=== PATIENT | male | born 1965 | race Caucasian/White ===

== ENCOUNTER → 2017-01-15 | Outpatient (CLI) | payer OTHER ==
[~2017-01-15] MED LIST: ASP81TEC PO; BUPR150T9 PO; CYCL10TA9 PO; FURO20TA4 PO; LOVA40TA2 PO; MTP50T PO; NF-ACI30T PO; TIOT18CA2 IH
--- NOTE | 2017-01-15 12:09 | Diagnostic Imaging Report ---
PROCEDURE: US right lower extremity venous. INDICATION: Right leg pain TECHNIQUE: Grayscale with color-flow and Doppler waveform evaluation of the right lower extremity deep venous system. CORRELATION STUDY: None FINDINGS: Color and grayscale sonographic images demonstrate no intraluminal defect within the visualized portion of the common femoral, superficial femoral and/or popliteal veins to suggest thrombus formation. These vessels demonstrate normal response to compression and augmentation. No soft tissue fluid collection. IMPRESSION: 1. Negative for deep venous thrombosis of the right leg. Dictated by: Dictated on workstation # [id number]
== END ==
LOC: RAD 11:24
PROVIDERS: ATTEND Nurse Practitioner Family
DX: M79.661 Pain in right lower leg (principal)

== ENCOUNTER → 2017-09-09 | Outpatient (CLI) | payer OTHER | LOC: RAD 13:12 | PROVIDERS: ATTEND Internal Medicine Cardiovascular Disease | DX: I65.23 Occlusion and stenosis of bilateral carotid arteries (principal); E66.8 Other obesity; G47.33 Obstructive sleep apnea (adult) (pediatric); R06.02 Shortness of breath; R07.89 Other chest pain; Z72.0 Tobacco use | CPT/HCPCS: 93923 ==

== ENCOUNTER → 2017-09-10 | Outpatient (CLI) | payer SELFPAY ==
[~2017-09-10] MED LIST changes: +RT-ALBUTEROL SULF 2.5 MG/3 ML PRE-MIX VIAL IH ONE
== END ==
LOC: RT 07:08
PROVIDERS: ATTEND Internal Medicine Cardiovascular Disease
DX: R07.89 Other chest pain (principal); I65.23 Occlusion and stenosis of bilateral carotid arteries; R06.02 Shortness of breath; E66.8 Other obesity; G47.33 Obstructive sleep apnea (adult) (pediatric); Z72.0 Tobacco use
CPT/HCPCS: 94060; 94726; 94729

== ENCOUNTER → 2017-09-16 | Outpatient (CLI) | payer OTHER ==
[~2017-09-16] VITALS: Ht 172.7 cm; Wt 91.2 kg
[~2017-09-16] MED LIST changes: +CATHETER FLUSH 10 ML SYR IV PRN; +REGADENOSON 0.4 MG/5 ML SYR (LEXISCAN) IV ONE; -RT-ALBUTEROL SULF 2.5 MG/3 ML PRE-MIX VIAL IH ONE
[2017-09-16 09:29] VITALS: BP 144/83
[2017-09-16 09:32] VITALS: BP 136/86
== END ==
LOC: CARD 08:03
PROVIDERS: ATTEND Internal Medicine Cardiovascular Disease
DX: I65.23 Occlusion and stenosis of bilateral carotid arteries (principal); R07.89 Other chest pain; Z72.0 Tobacco use; R06.02 Shortness of breath; E66.8 Other obesity; G47.33 Obstructive sleep apnea (adult) (pediatric)
CPT/HCPCS: 78452; 93017

== ENCOUNTER → 2017-09-18 | Outpatient (CLI) | payer SELFPAY ==
[~2017-09-18] MED LIST changes: -CATHETER FLUSH 10 ML SYR IV PRN; -REGADENOSON 0.4 MG/5 ML SYR (LEXISCAN) IV ONE
--- NOTE | 2017-09-18 17:07 | Diagnostic Imaging Report ---
Indication: Dyspnea and cough PA and lateral views of the chest are obtained. Comparison is made study of 12/12/2009. FINDINGS: Heart size and pulmonary vascularity are within normal limits, and the lungs are clear, bilaterally. IMPRESSION: Unremarkable chest. Dictated by: Dictated on workstation # [id number]
== END ==
LOC: RAD 15:47
PROVIDERS: ATTEND Nurse Practitioner Family
DX: J44.9 Chronic obstructive pulmonary disease, unspecified (principal)
CPT/HCPCS: 71020

== ENCOUNTER 2017-09-29 14:30 | Outpatient (CLI) | payer SELFPAY ==
[2017-09-30] MEDS ORDERED: INDO50CA PO (10:56)
[2017-09-30] MEDS ORDERED: FLUT1AER IH (10:56)
[2017-09-30] MEDS ORDERED: GABA-488 PO (10:56)
== END 2017-09-29 14:49 | disposition home or self-care (01) ==
LOC: SLEEP 14:30
PROVIDERS: ATTEND Nurse Practitioner Family
DX: G47.33 Obstructive sleep apnea (adult) (pediatric) (principal); G47.50 Parasomnia, unspecified; R06.02 Shortness of breath

== ENCOUNTER 2017-09-30 10:13 | Day surgery (SDC) | payer SELFPAY ==
[~2017-09-30] VITALS: Ht 172.7 cm; Wt 89.8 kg
[2017-09-30] VITALS (8 sets, daily range): BP systolic 108–115; BP diastolic 65–84
[2017-09-30] MEDS ORDERED: HEParin (CATH LAB) 2,000 ML IV ONE (10:37)
[2017-09-30] MEDS ORDERED: LIDOCAINE 1% INJ 50 ML (XYLOCAINE) VIAL ONE (10:37)
[2017-09-30] MEDS ORDERED: NS IV 1000 ML 1,000 ML ONE (10:37)
[2017-09-30] MEDS ORDERED: GABA-488 PO (10:56)
[2017-09-30] MEDS ORDERED: FLUT1AER IH (10:56)
[2017-09-30] MEDS ORDERED: INDO50CA PO (10:56)
[2017-09-30 10:59] LABS: MEAN PLATELET VOLUME 10.2 FL (7.4-10.4); RED BLOOD COUNT 5.09 10^6/uL (4.35-5.85); RED CELL DISTRIBUTION WIDTH 13.7 % (10.0-14.5); WHITE BLOOD COUNT 8.3 10^3/uL (4.3-11.0)
[2017-09-30] MEDS ORDERED: INFLUENZA TRIvalent 2017-2018 0.5 ML/45 MCG SYR IM ONE (11:00)
[2017-09-30] MEDS ORDERED: NS IV 1000 ML 1,000 ML IV SCH ×2 (11:00→14:17)
[2017-09-30 11:06] LABS: INR 0.9 (0.8-1.4); PROTHROMBIN TIME PATIENT 11.9 SEC (12.2-14.7)
[2017-09-30 11:14] LABS: ALANINE AMINOTRANSFERASE 35 U/L (0-55); ALBUMIN 4.2 GM/DL (3.2-4.5); ANION GAP 7 MMOL/L (5-14); ASPARTATE AMINO TRANSFERASE 28 U/L (5-34); BILIRUBIN,TOTAL 0.4 MG/DL (0.1-1.0); BLOOD UREA NITROGEN 12 MG/DL (7-18); BUN/CREATININE RATIO 13; CALCIUM 11.6 MG/DL (8.5-10.1); CARBON DIOXIDE 24 MMOL/L (21-32); CHLORIDE 107 MMOL/L (98-107); CHOLESTEROL 152 MG/DL (< 200); CREATININE SERUM 0.92 MG/DL (0.60-1.30); DIRECT LDL 106 MG/DL (1-129); GFR ESTIMATED > 60; GLUCOSE 104 MG/DL (70-105); POTASSIUM 4.4 MMOL/L (3.6-5.0); SODIUM 138 MMOL/L (135-145); TOTAL PROTEIN 7.2 GM/DL (6.4-8.2); TRIGLYCERIDES 67 MG/DL (<150); VLDL CHOLESTEROL 13 MG/DL (5-40)
[2017-09-30] MEDS ORDERED: diphenhydrAMINE 50 MG/ML INJ (BENADRYL) ONE (13:28)
[2017-09-30] MEDS ORDERED: fentaNYL INJECTION 100 MCG/2 ML AMP ONE (13:28)
[2017-09-30] MEDS ORDERED: MIDAZOLAM 5 MG/5 ML (VERSED) VIAL ONE (13:28)
--- NOTE | 2017-09-30 13:43 | Cardiac Procedure Note-CS/ASA ---
Pre-Procedure Note Pre-Op Procedure Note H&P Reviewed The H&P was reviewed, patient examined and no changes noted. Date H&P Reviewed: Sep 30, 2017 Time H&P Reviewed: 13:43 Conscious Sedation Pre-Proced Time Reviewed: 13:43 ASA Class: 3 Airway Mallampati Classification: (port gamble appropriate class) I. II. III, IV Lungs Heart ASA score ASA 1: a normal healthy patient ASA 2: a patient with a mild systemic disease (mid diabetes, controlled hypertension, obesity ASA 3: a patient with a severe systemic disease that limits activity (angina , COPD, prior Myocardial infarction) ASA 4: a patient with an incapacitating disease that is a constant threat to life (CHF, renal failure) ASA 5: a moribund patient not expected to survive 24 hrs. (ruptured aneurysm) ASA 6: a declared brain patient whose organs are being harvested. For emergent operations, add the letter E after the classification Grade 3 Sedation Plan: Analgesia, Amnesia, Plan communicated to team members, Discussed options with patient/fam, Discussed risks with patient/fam Note The patient is an appropriate candidate to undergo the planned procedure, sedation, and anesthesia. The patient immediately re-assessed prior to indication. OSIEL MILLER MD FACP FAC CCDS Sep 30, 2017 13:43
--- NOTE | 2017-09-30 14:18 | Discharge Inst-Post CATH ---
Discharge Inst-CATH Post Cardiac Cath D/C Inst Follow Up/Plan F/u with Dr Hess next week CARDIAC CATH DISCHARGE INSTRUCTIONS *Hold Metformin for 48 hours post heart cath. ACTIVITY * Go Home directly and rest. * Limit activity of the leg (or wrist if it was used) for 7 days including aerobics, swimming, jogging, bicycling, etc. * Restrict stair-climbing for 7 days if possible, if not, climb up with your non -cath leg, then bring together on the same step. * Avoid lifting, pushing, pulling or excessive movement of the affected extremity for 7 days. * Customary sexual activity may be resumed after 2 days-use caution not to use a position that strains or causes pain to the affected extremity. * No driving for 24 hours. * NO SMOKING. * Avoid straining for bowel movements for 7 days. * Gentle walking on level ground is allowed. * Returning to work will depend on the type of procedure and the results. Your doctor will discuss this with you. CALL YOUR DOCTOR FOR ANY OF THE FOLLOWING: *If bleeding from the puncture site occurs- Apply gentle pressure to site with clean cloth and call your doctor or EMS. * If a knot or lump forms under the skin, increases in size, or causes pain. * If bruising appears to be worsening or moving further down your leg instead of disappearing. * Temperature above 101 F. CARE OF YOUR GROIN INCISION; * Bruising or purple discoloration of the skin near the puncture site is common. * You may shower only, no bathtub bathing for 5 days. Be careful to avoid slipping as your leg may feel stiff. * If a closure device was used on your femoral artery, please see the attached guide regarding care of the device and your leg. * REMOVE the dressing from your groin the next day after your procedure in the shower. CARE OF YOUR WRIST INCISION; * Bruising or purple discoloration of the skin near the puncture site is common. * You may shower. * DO NOT submerge wrist. * Remove dressing in 24 hours. OSIEL HESS MD FACP [facility] CCDS Sep 30, 2017 14:18
--- NOTE | 2017-09-30 14:19 | Discharge Inst-Cardiology ---
Discharge Inst-Cardiac Discharge Medications Continued Medications: Aspirin (Aspirin Ec 81 Mg) 81 Mg Tabec 81 MG PO DAILY Bupropion HCl (Wellbutrin Sr) 150 Mg Tablet.er 150 MG PO DAILY, TAB Cyclobenzaprine HCl (Cyclobenzaprine HCl) 10 Mg Tablet 10 MG PO PRN for Muscle Spasms, TAB Fluticasone/Vilanterol (Breo Ellipta 100-25 Mcg INH) 1 Each Blst.w.dev 1 EACH IH DAILY Furosemide (Furosemide) 20 Mg Tablet 20 MG PO DAILY, TAB Gabapentin (Gabapentin) 300 Mg Capsule 300 MG PO DAILY, CAP Indomethacin (Indomethacin) 50 Mg Capsule 50 MG PO TID PRN for ARTHRITIS, CAP Lovastatin (Lovastatin) 40 Mg Tablet 40 MG PO DAILY, TAB Metoprolol Tartrate (Metoprolol Tartrate 50 Mg) 50 Mg Tablet 0.5 TAB PO BID PATIENT TAKE 1/2 TABLET OF 50 MG TAB TWICE A DAY Rabeprazole Sodium (Aciphex) 20 Mg Tablet.dr 20 MG PO HS, TAB Tiotropium [place] (Spiriva) 1 Inh Aerp 1 INH IH DAILY, INHALER Orders-Post D/C & Referrals Pneu Vac Indicated: Yes OSIEL MILLER MD FACP FAC CCDS Sep 30, 2017 14:19
[2017-09-30] MEDS ORDERED: PATIENT MAY USE OWN MEDS, ALL PO SCH (14:30)
--- NOTE | 2017-09-30 19:22 | CARDIAC CATHETERIZATION ---
DATE OF SERVICE: 09/30/2017 INDICATIONS: The patient is a 52-year-old man who has multiple coronary artery disease risk factors and who has symptoms of exertional shortness of breath that continue to progress. A myocardial perfusion imaging study of 09/16/2017 was indicative of basal inferior ischemia of a moderate degree. Cardiac catheterization was recommended. An informed consent was obtained. DESCRIPTION OF PROCEDURE: He was brought to the cardiac catheterization laboratory in a fasting state. Right groin was prepared and draped in usual sterile fashion with 1% lidocaine local anesthesia. Modified Seldinger technique was used to advance a 5-[place] sheath in right femoral artery, 5-[place] JL4 catheter was used for left coronary angiography, 5-[place] JR4 catheter was used for right coronary angiography, 5-[place] pigtail catheter was used for left heart catheterization and left ventricular angiography. The pigtail catheter was pulled back to the aortic arch and aortic arch angiography was performed. At the end of the procedure, angiography of the right femoral artery was carried out through the sheath. Mynx was used to achieve hemostasis. He tolerated the procedure well. HEMODYNAMICS: Left ventricular end-diastolic pressure following coronary angiography was 13 mmHg. There was no significant pressure gradient on pullback across the aortic valve. Ascending aortic pressure was 94/55 with a mean of 74 mmHg. LEFT VENTRICULAR ANGIOGRAPHY: Left ventricular angiography was carried out in the right anterior oblique projection. Left ventricular systolic function is hyperdynamic. Left ventricular ejection fraction is approximately 75%. There is no significant mitral regurgitation. CORONARY ANGIOGRAPHY: Left main coronary artery, left anterior descending artery, left circumflex artery, and right coronary artery are all free of angiographically significant coronary artery disease. Minor plaques are seen in the right coronary artery. The right coronary and the left circumflex arteries are codominant. CONCLUSIONS: 1. Angiographically mild coronary artery disease. 2. Normal to hyperdynamic left ventricular systolic function with an ejection fraction of approximately 75%. 3. Normal left ventricular end-diastolic pressure. 4. No significant mitral regurgitation. DISCUSSION AND RECOMMENDATIONS: Based on results of the study, his recent myocardial perfusion imaging appears to have been a false positive study. We recommend continuing risk factor modification and a conservative management. Outpatient followup is advised. Job ID: [id number] DocumentID: [id number] Dictated Date: 09/30/2017 14:09:52 [employer] Dual Rate Supervisor Date: 09/30/2017 19:22:00 Dictated By: OSIEL MILLER MD, MA, FACP, FACC,
== END 2017-09-30 17:00 | disposition home or self-care (01) ==
LOC: CATH 10:13 → 4TH 14:25 → CATH 17:00
PROVIDERS: ATTEND Internal Medicine Cardiovascular Disease
DX: R06.02 Shortness of breath (principal); I25.10 Atherosclerotic heart disease of native coronary artery without angina pectoris; E83.52 Hypercalcemia; F17.210 Nicotine dependence, cigarettes, uncomplicated; E78.5 Hyperlipidemia, unspecified; I35.8 Other nonrheumatic aortic valve disorders; I73.9 Peripheral vascular disease, unspecified; G47.33 Obstructive sleep apnea (adult) (pediatric)
CPT/HCPCS: 36221; 36415; 80053; 80061; 85027; 85610; 85730; 87081; 93458

== ENCOUNTER → 2017-11-13 | Outpatient (CLI) | payer OTHER ==
[~2017-11-13] MED LIST changes: +FLUT1AER IH; +GABA-488 PO; +INDO50CA PO
--- NOTE | 2017-11-13 18:09 | Diagnostic Imaging Report ---
INDICATION: Osteoporosis. COMPARISON: Prior exam from 09/14/2015. EXAMINATION: Bone mineral analysis of the lumbar spine and both hips was performed. FINDINGS: The bone mineral density of the lumbar spine at L2-L4 is 0.876 with a T-score of -3.0. This compares with 0.870 and -3.1. Bone mineral density of the left femoral neck is 0.861 with a T-score of -1.6. This compares with 0.841 and -1.8. Bone mineral density of the right femoral neck is 0.912 with T-score of -1.2. This compares with 0.954 and -0.9. IMPRESSION: Findings consistent with osteoporosis of the lumbar spine with osteopenia of bilateral femoral necks. Dictated by: Dictated on workstation # [id number]
== END ==
LOC: RAD 10:23
PROVIDERS: ATTEND Nurse Practitioner Family
DX: M85.88 Other specified disorders of bone density and structure, other site (principal); E21.3 Hyperparathyroidism, unspecified
CPT/HCPCS: 77080

== ENCOUNTER 2017-11-19 21:06 | Outpatient (CLI) | payer OTHER | END 2017-11-20 05:50 | disposition home or self-care (01) | LOC: SLEEP 21:06 | PROVIDERS: ATTEND Nurse Practitioner Family | DX: G47.33 Obstructive sleep apnea (adult) (pediatric) (principal); G47.50 Parasomnia, unspecified; G47.10 Hypersomnia, unspecified; J44.9 Chronic obstructive pulmonary disease, unspecified | CPT/HCPCS: 95810 ==

== ENCOUNTER 2018-02-02 12:49 | Outpatient (RCR) | payer OTHER ==
[~2018-02-02 12:49] MED LIST changes: -INDO50CA PO; +INDO50CA11 PO
== END 2018-05-03 | disposition home or self-care (01) ==
LOC: RT 12:49
PROVIDERS: ATTEND Nurse Practitioner Family
DX: R06.02 Shortness of breath (principal); J44.9 Chronic obstructive pulmonary disease, unspecified; G47.34 Idiopathic sleep related nonobstructive alveolar hypoventilation; G47.10 Hypersomnia, unspecified; Z72.0 Tobacco use
CPT/HCPCS: 99211

== ENCOUNTER → 2019-02-15 | Outpatient (CLI) | payer OTHER ==
--- NOTE | 2019-02-15 09:38 | Diagnostic Imaging Report ---
PROCEDURE: US Thyroid. TECHNIQUE: Multiple real-time grayscale images were obtained of the thyroid in various projections. INDICATION: Hyperparathyroidism. FINDINGS: Right lobe of the thyroid measures 5.2 x 1.7 x 2.4 cm and left lobe measures 4.9 x 1.4 x 1.5 cm. Isthmus is 4 mm in thickness. Both lobes of the thyroid demonstrate homogeneous echotexture. No discrete thyroid mass is detected. IMPRESSION: Unremarkable thyroid ultrasound. Dictated by: Dictated on workstation # [id number]
== END ==
LOC: RAD 07:34
PROVIDERS: ATTEND Internal Medicine Endocrinology, Diabetes & Metabolism
DX: E21.3 Hyperparathyroidism, unspecified (principal)
CPT/HCPCS: 76536